=== PATIENT | male | born 1960 | race Two or more races ===

== ENCOUNTER 2017-09-01 12:57 | Emergency (ER) | payer BC ==
[~2017-09-01] VITALS: Ht 165.1 cm; Wt 83.9 kg
[~2017-09-01 12:57] MED LIST: ESOM20SU PO; LISI-334 PO
[2017-09-01 13:00] VITALS: BP 162/73
[2017-09-01] MEDS ORDERED: HYDR-971 PO (13:54)
[2017-09-01] MEDS ORDERED: AMOX1TAB61 PO (13:54)
[2017-09-01] MEDS ORDERED: MUPI22OI2 TP (13:55)
[2017-09-01] MEDS ORDERED: DIPHTH,PERTUSS(ACELL),TET TOX 0.5 ML DISP.SYRIN. VAX IM ONE (14:00)
[2017-09-01] MEDS ORDERED: NEOMY/BACITR/POLYMYXIN OINT PACKET. TP ONE (14:15)
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
== END 2017-09-01 14:23 | disposition home or self-care (01) ==
LOC: ER 12:57
DX: T24.222A Burn of second degree of left knee, initial encounter (principal); I10 Essential (primary) hypertension; E05.90 Thyrotoxicosis, unspecified without thyrotoxic crisis or storm; X08.8XXA Exposure to other specified smoke, fire and flames, initial encounter; Y93.89 Activity, other specified; Y99.8 Other external cause status; Y92.89 Other specified places as the place of occurrence of the external cause
CPT/HCPCS: 16020; 90471; 90715; 99283-25; 99284-25

== ENCOUNTER → 2021-01-03 | Outpatient (CLI) | payer BC ==
[~2021-01-03] MED LIST changes: +AMOX1TAB61 PO; +HYDR-3164 PO; -LISI-334 PO; +LISI20TA18 PO; +MUPI22OI2 TP
--- NOTE | 2021-01-03 17:12 | KCIC ---
XR CHEST 2V INDICATION: Reason: JENKINS, X2 MONTHS / Spl. Instructions: / History: . COMPARISON STUDY: None. FINDINGS: Lungs: Normal lung volume. No pulmonary mass or consolidation. Calcified pulmonary granuloma. The tra cheobronchial tree and hilar structures are normal. Pleura: No pleural effusion or pneumothorax. Heart and Mediastinum: The cardiomediastinal silhouette is normal. The great vessels of the thorax ar e normal. Bones and Soft Tissues: The bones and soft tissues are within normal limits. IMPRESSION: No acute cardiopulmonary process. Electronically signed by: Evaristo Jaquez MD (01/03/2021 5:10 PM) [id number]
== END ==
LOC: KCIC 12:32
PROVIDERS: ATTEND Family Medicine
DX: R06.00 Dyspnea, unspecified (principal)
CPT/HCPCS: 71046

== ENCOUNTER 2021-12-27 02:47 | Inpatient (IN) | payer BC ==
[~2021-12-27] VITALS: Ht 165.1 cm; Wt 82.3 kg
[~2021-12-27 02:47] MED LIST changes: +NITR0.4T24 SL
[2021-12-27 03:16] LABS: BASO % 0 % (0-3); EOS # 0.1 x10^3/uL (0.0-0.7); EOS % 1 % (0-3); HEMATOCRIT 40.8 % (39.0-53.0); HEMOGLOBIN 13.9 g/dL (13.0-17.5); LYMPH # 2.1 x10^3/uL (1.0-4.8); LYMPH % 18 % (24-48); MEAN CORPUSCULAR HEMOGLOBIN 30 pg (25-35); MEAN CORPUSCULAR HGB CONC 34 g/dL (31-37); MEAN CORPUSCULAR VOLUME 89 fL (79-100); MONO # 0.7 x10^3/uL (0.0-1.1); MONO % 6 % (0-9); NEUT # 8.8 x10^3/uL (1.8-7.7); NEUT % 75 % (31-73); PLATELET COUNT 226 x10^3/uL (140-400); RED BLOOD COUNT 4.58 x10^6/uL (4.30-5.70); RED CELL DISTRIBUTION WIDTH 13.5 % (11.5-14.5); WHITE BLOOD COUNT 11.8 x10^3/uL (4.0-11.0)
[2021-12-27 03:26] LABS: PROTHROMBIN TIME PATIENT 12.2 SEC (11.7-14.0)
[2021-12-27] MEDS ORDERED: ONDANSETRON PF 4 MG/2 ML VIAL. IVP ONE (03:30)
[2021-12-27] MEDS ORDERED: MORPHINE SULFATE 4 MG/ML INJ. IVP ONE (03:30)
[2021-12-27] MEDS ORDERED: IV NORMAL SALINE 1000ML BAG 1,000 ML IV ONE (03:30)
[2021-12-27 03:32] LABS: CALCIUM 9.7 mg/dL (8.5-10.1); GFR 76.2
[2021-12-27 03:38] LABS: TOTAL BILIRUBIN 0.4 mg/dL (0.2-1.0)
--- NOTE | 2021-12-27 03:46 | PHYS DOC ---
Past Medical History Past Medical History: Hypertension, Hypothyroid Additional Past Medical Histor: Acid Reflux Past Surgical History: Appendectomy Smoking Status: Current Every Day Smoker Alcohol Use: Occasionally Drug Use: None Adult General Chief Complaint Chief Complaint: GI PROBLEM HPI HPI The patient is a 61-year-old male with a history of hypertension and hypothyroid ism as well as prior appendectomy. He is a smoker. Mr. Lazcano presents for evaluation of upper abdominal pain with onset about 2 hours prior to arrival. Discomfort localizes to the right upper quadrant in the epigastrium and is severe, 9 out of 10 in severity per patient. Character of discomfort is sharp. Associated nausea with 1 episode of nonbloody vomiting thus far. No associated fevers, hematemesis, hematochezia or melena, upper respiratory congestion/rhinorrhea, cough, sore throat, shortness of breath or chest pain of any kind, flank pain, midline back pain, dysuria, hematuria, sunny yuria or oliguria, groin pain, changes in bowel habits, pain or swelling to arms or legs. Patient is alert and appropriately interactive and in mild distress due to abdominal discomfort. Vital signs are appropriate here aside from elevated blood pressure. Review of Systems Review of Systems A 12 point review of systems was completed and was negative except where noted in HPI above. Current Medications Current Medications Current Medications Medications (Trade) Dose Ordered Sig/Jose Start Time Stop Time Status Last Admin Dose Admin Dextrose/Lactated Ringer's 1,000 ml @ 125 mls/hr 1X ONCE 12/27/21 05:00 12/27/21 12:59 Hydromorphone HCl (Dilaudid) 1 mg 1X ONCE 12/27/21 04:00 12/27/21 04:01 DC 12/27/21 03:41 1 MG Morphine Sulfate (Morphine Sulfate) 2 mg PRN Q2HR PRN 12/27/21 04:30 12/28/21 04:29 Ondansetron HCl (Zofran) 4 mg PRN Q8HRS PRN 12/27/21 04:30 12/28/21 04:29 Piperacillin Sod/ Tazobactam Sod 4.5 gm/Dextrose 100 ml @ 200 mls/hr 1X ONCE 12/27/21 05:00 12/27/21 05:29 Sodium Chloride 1,000 ml @ 1,000 mls/hr 1X ONCE 12/27/21 03:30 12/27/21 04:29 DC 12/27/21 03:22 1,000 MLS/HR Allergies Allergies Allergies Coded Allergies Type Severity Reaction Last Updated Verified No Known Drug Allergies 12/27/21 No Physical Exam Physical Exam 7-year-old male appearing nontoxic and in no acute distress. Head is normocephalic and atraumatic. Neck is supple and nontender. Oropharynx is moist. Lungs are clear to auscultation at all stations. There is a normal S1 and S2 without rubs or gallops and capillary refill is appropriate, less than 2 seconds globally. Abdomen is soft, nondistended and with mild focal epigastric and right upper quadrant tenderness to palpation without rebound or guarding. No lower quadrant tenderness to palpation. Skin is warm and dry without cyanosis, clubbing or edema. Psychiatrically, the patient demonstrates appropriate mood and affect and is alert. Evaluation of the extremities reveals BUEs and BLEs neurovascularly intact distally with strength 5 out of 5, sensation intact light touch in all nerve distributions, radial, DP and PT pulses 2+ and equal bilaterally, capillary refill less than 2 seconds, hands and feet warm and well-perfused. No dependent peripheral edema distally. No calf tenderness or swelling bilaterally. Homans test is negative bilaterally. Current Patient Data Vital Signs Vital Signs Date Time Temp Pulse Resp B/P (MAP) Pulse Ox O2 Delivery O2 Flow Rate FiO2 12/27/21 03:55 20 100 Room Air 12/27/21 02:54 97.7 69 185/119 (141) 97.7 Lab Values Laboratory Tests Test 12/27/21 03:06 White Blood Count 11.8 x10^3/uL (4.0-11.0) H Red Blood Count 4.58 x10^6/uL (4.30-5.70) Hemoglobin 13.9 g/dL (13.0-17.5) Hematocrit 40.8 % (39.0-53.0) Mean Corpuscular Volume 89 fL (79-100) Mean Corpuscular Hemoglobin 30 pg (25-35) Mean Corpuscular Hemoglobin Concent 34 g/dL (31-37) Red Cell Distribution Width 13.5 % (11.5-14.5) Platelet Count 226 x10^3/uL (140-400) Neutrophils (%) (Auto) 75 % (31-73) H Lymphocytes (%) (Auto) 18 % (24-48) L Monocytes (%) (Auto) 6 % (0-9) Eosinophils (%) (Auto) 1 % (0-3) Basophils (%) (Auto) 0 % (0-3) Neutrophils # (Auto) 8.8 x10^3/uL (1.8-7.7) H Lymphocytes # (Auto) 2.1 x10^3/uL (1.0-4.8) Monocytes # (Auto) 0.7 x10^3/uL (0.0-1.1) Eosinophils # (Auto) 0.1 x10^3/uL (0.0-0.7) Basophils # (Auto) 0.0 x10^3/uL (0.0-0.2) Prothrombin Time 12.2 SEC (11.7-14.0) Prothrombin Time INR 0.9 (0.8-1.1) Activated Partial Thromboplast Time 28 SEC (24-38) Sodium Level 139 mmol/L (136-145) Potassium Level 4.0 mmol/L (3.5-5.1) Chloride Level 101 mmol/L (98-107) Carbon Dioxide Level 24 mmol/L (21-32) Anion Gap 14 (6-14) Blood Urea Nitrogen 19 mg/dL (8-26) Creatinine 1.0 mg/dL (0.7-1.3) Estimated GFR (Cockcroft-Gault) 76.2 BUN/Creatinine Ratio 19 (6-20) Glucose Level 181 mg/dL (70-99) H Calcium Level 9.7 mg/dL (8.5-10.1) Total Bilirubin 0.4 mg/dL (0.2-1.0) Aspartate Amino Transferase (AST) 22 U/L (15-37) Alanine Aminotransferase (ALT) 26 U/L (16-63) Alkaline Phosphatase 90 U/L (46-116) Troponin I High Sensitivity 7 ng/L (4-75) Total Protein 8.0 g/dL (6.4-8.2) Albumin 4.0 g/dL (3.4-5.0) Albumin/Globulin Ratio 1.0 (1.0-1.7) Lipase 54 U/L (73-393) L Laboratory Tests 12/27/21 03:06 Laboratory Tests 12/27/21 03:06 EKG EKG Sinus rhythm, no acute ST elevation or depression, EP interpretation. Nonischemic tracing. Radiology/Procedures Radiology/Procedures EXAMINATION: RIGHT UPPER QUADRANT ULTRASOUND CLINICAL HISTORY: Right upper quadrant abdominal pain. TECHNIQUE: Sonography of the right upper quadrant was performed. COMPARISON: None FINDINGS: Pancreas: Not visualized secondary to prominent overlying bowel gas. Liver: - Echotexture: Heterogeneous - Echogenicity: Increased, suggestive of steatosis - Surface contour: Smooth - Lesions: None. Biliary: No intrahepatic biliary duct dilation. - CBD: 6 mm. - Gallbladder: Moderately distended - Contents: Cholelithiasis - Wall: Thickened - Other: Minimal pericholecystic fluid. Positive sonographic Armos's sign. Right Kidney: Measures 11.1 cm in length. No hydronephrosis or focal lesion. Ascites: None. Aorta/IVC: Partially visualized aorta and IVC unremarkable. IMPRESSION: Cholelithiasis and findings consistent with acute cholecystitis. Findings suggestive of hepatic steatosis. Electronically signed by: Seymour Bashir DO (12/27/2021 4:13 AM) [facility] DICTATED and SIGNED BY: SEYMOUR BASHIR DO DATE: 12/27/21409 Course & Med Decision Making Course & Med Decision Making 61-year-old gentleman presenting for right upper quadrant and epigastric abdominal pain associated with vomiting with acute onset a couple of hours prior to arrival overnight. Patient seems focally quite tender over the right upper q uadrant. Will place IV and give IV fluids and medication for nausea and discomfort as noted and will check labs, EKG and a right upper quadrant ultrasound to start. We will then reevaluate. 0420: Labs and imaging as above. Labs remarkable for a mild leukocytosis and otherwise reassuring. Right upper quadrant ultrasound with evidence of cholelithiasis with acute cholecystitis. Patient is resting very comfortably after medications and fluids as per flowsheet. We will give a dose of Zosyn and admit for attention from general surgery and further care. Graciously accepted for admission by Dr. Hussein. Consult placed to Dr. Jacobson of general surgery. Dragon Disclaimer Dragon Disclaimer This electronic medical record was generated, in whole or in part, using a voice recognition dictation system. Departure Departure Impression: Primary Impression: Acute cholecystitis Additional Impressions: Right upper quadrant abdominal pain Acute vomiting Disposition: ADMITTED INPATIENT Condition: STABLE Referrals: SAHIL TAYLOR MD (PCP) Problem Qualifiers NEMO ENGLAND MD Dec 27, 2021 03:46
[2021-12-27] MEDS ORDERED: HYDROmorphone 2 MG/ML INJ. IVP ONE (04:00)
--- NOTE | 2021-12-27 04:16 | RAD ---
EXAMINATION: RIGHT UPPER QUADRANT ULTRASOUND CLINICAL HISTORY: Right upper quadrant abdominal pain. TECHNIQUE: Sonography of the right upper quadrant was performed. COMPARISON: None FINDINGS: Pancreas: Not visualized secondary to prominent overlying bowel gas. Liver: - Echotexture: Heterogeneous - Echogenicity: Increased, suggestive of steatosis - Surface contour: Smooth - Lesions: None. Biliary: No intrahepatic biliary duct dilation. - CBD: 6 mm. - Gallbladder: Moderately distended - Contents: Cholelithiasis - Wall: Thickened - Other: Minimal pericholecystic fluid. Positive sonographic Ramos's sign. Right Kidney: Measures 11.1 cm in length. No hydronephrosis or focal lesion. Ascites: None. Aorta/IVC: Partially visualized aorta and IVC unremarkable. IMPRESSION: Cholelithiasis and findings consistent with acute cholecystitis. Findings suggestive of hepatic steatosis. Electronically signed by: Seymour eMnjivar DO (12/27/2021 4:13 AM) [facility]
[2021-12-27] MEDS ORDERED: ONDANSETRON PF 4 MG/2 ML VIAL. IVP PRN (04:30)
[2021-12-27] MEDS: MORPHINE SULFATE 2 MG/ML INJ. IVP PRN ×7 (04:56→22:26)
[2021-12-27] MEDS ORDERED: PIPERACILLIN/TAZOBACTAM 4.5 GM in IV DEXTROSE 5% 100ML 100 ML IV ONE (05:00)
[2021-12-27] MEDS ORDERED: IV DEXTROSE 5%-LACT RINGERS 1,000 ML IV ONE ×2 (05:00)
--- NOTE | 2021-12-27 05:50 | EKG ---
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
[2021-12-27 07:30] VITALS: BP 148/78
--- NOTE | 2021-12-27 10:23 | NUR ---
SS following for discharge planning. SS reviewed pt chart and discussed with pt RN. Pt is from home with spouse and is currently on room air. NPO. Surgery consulted. Pt ad sivakumar for ambulation. Discharge plan is currently to home when medically ready for discharge. SS will continue to follow for discharge planning.
[2021-12-27 11:00] VITALS: BP 165/103
[2021-12-27] MEDS ORDERED: PIP/TAZO PER PHARMACY MC PRN (11:30)
--- NOTE | 2021-12-27 11:30 | PDOC2 ---
CONSULT Date of Consult Date of Consult DATE: 12/27/21 TIME: 11:27 Reason for Consult Reason for Consult: cholecystitis Referring Physician Referring Physician: ER Identification/Chief Complaint Chief Complaint abdominal pain Source Source: Chart review, Patient History of Present Illness Reason for Visit: Admitted with acute onset RUQ pain that radiates to back. Associated nausea. No similar pain in past . No constipation or diarrhea Past Medical History Cardiovascular: CAD, HTN GI: GERD Endocrine: Hypothyroidism Past Surgical History Past Surgical History: Appendectomy Family History Family History: Other (noncontributory to current illness ) Social History <1 pack per day ALCOHOL: occassional Drugs: None Current Problem List Problem List Problems Medical Problems: (1) Acute cholecystitis Status: Acute (2) Acute vomiting Status: Acute (3) Right upper quadrant abdominal pain Status: Acute Current Medications Current Medications Current Medications Morphine Sulfate (Morphine Sulfate) 4 mg 1X ONCE IVP Last administered on 12/27/21at 03:18; Start 12/27/21 at 03:30; Stop 12/27/21 at 03:31; Status DC Ondansetron HCl (Zofran) 4 mg 1X ONCE IVP Last administered on 12/27/21at 03:18; Start 12/27/21 at 03:30; Stop 12/27/21 at 03:31; Status DC Sodium Chloride 1,000 ml @ 1,000 mls/hr 1X ONCE IV Last administered on 12/27/21at 03:22; Start 12/27/21 at 03:30; Stop 12/27/21 at 04:29; Status DC Hydromorphone HCl (Dilaudid) 1 mg 1X ONCE IVP Last administered on 12/27/21at 03:41; Start 12/27/21 at 04:00; Stop 12/27/21 at 04:01; Status DC Piperacillin Sod/ Tazobactam Sod 4.5 gm/Dextrose 100 ml @ 200 mls/hr 1X ONCE IV Last administered on 12/27/21at 05:07; Start 12/27/21 at 05:00; Stop 12/27/21 at 05:29; Status DC Dextrose/Lactated Ringer's 1,000 ml @ 125 mls/hr 1X ONCE IV Last administered on 12/27/21at 04:57; Start 12/27/21 at 05:00; Stop 12/27/21 at 12:59 Ondansetron HCl (Zofran) 4 mg PRN Q8HRS PRN IVP NAUSEA/VOMITING; Start 12/27/21 at 04:30; Stop 12/28/21 at 04:29 Morphine Sulfate (Morphine Sulfate) 2 mg PRN Q2HR PRN IVP SEVERE PAIN 7-10 Last administered on 12/27/21at 08:18; Start 12/27/21 at 04:30; Stop 12/28/21 at 04:29 Dextrose/Lactated Ringer's 1,000 ml @ 125 mls/hr 1X ONCE IV ; Start 12/27/21 at 05:00; Stop 12/27/21 at 12:59; Status Cancel Dextrose/Lactated Ringer's 1,000 ml @ 125 mls/hr Q8H IV ; Start 12/27/21 at 13:00 Piperacillin Sod/ Tazobactam Sod 4.5 gm/Sodium Chloride 100 ml @ 200 mls/hr Q6HRS IV ; Start 12/27/21 at 12:00; Stop 12/27/21 at 11:22; Status DC Piperacillin Sod/ Tazobactam Sod (Zosyn Per Pharmacy) 1 each PRN DAILY PRN MC SEE COMMENTS; Start 12/27/21 at 11:30 Piperacillin Sod/ Tazobactam Sod 3.375 gm/Sodium Chloride 50 ml @ 100 mls/hr Q6HRS IV ; Start 12/27/21 at 12:00 Active Scripts Active Nitrostat (Nitroglycerin) 0.4 Mg Tab.subl 0.4 Mg SL PRN Q5MIN PRN 30 Days Reported Nexium Packet (Esomeprazole Magnesium) 20 Mg Suspdr.pkt 20 Mg PO Lisinopril 20 Mg Tablet 40 Mg PO DAILY Allergies Allergies: Coded Allergies: No Known Drug Allergies (Unverified , 12/27/21) ROS General: No: Chills, Other (fevers ) PSYCHOLOGICAL ROS: No: Anxiety, Depression Eyes: No Blurry vision, No Double vision HEENT: No: Heacaches, Sore Throat Hematological and Lymphatic: No: Bleeding Problems, Blood Clots Respiratory: No: Cough, Shortness of breath Cardiovascular: No Chest Pain, No Palpitations Gastrointestinal: Yes Other (see hpi) Genitourinary: No Dysuria, No Hematuria Musculoskeletal: No Joint Pain, No Muscle Pain Neurological: No Impaired Coord/balance, No Numbness/Tingling Skin: No Pruritus, No Rash Physical Exam General: Alert, Oriented X3, Cooperative HEENT: Atraumatic Lungs: Clear to auscultation Heart: Regular rate, Normal S1, Normal S2, No murmurs Abdomen: Soft, Other (RUQ TTP ) Extremities: No clubbing, No cyanosis Skin: No rashes, No breakdown Neuro: Normal gait, Normal speech Psych/Mental Status: Mental status NL, Mood NL MUSCULOSKELETAL: No deformity, No swelling Vitals VITALS Vital Signs Date Time Temp Pulse Resp B/P (MAP) Pulse Ox O2 Delivery O2 Flow Rate FiO2 12/27/21 11:00 97.8 53 18 165/103 (123) 98 Room Air 97.8 Labs Labs Laboratory Tests Test 12/27/21 03:06 12/27/21 05:05 White Blood Count 11.8 x10^3/uL (4.0-11.0) Red Blood Count 4.58 x10^6/uL (4.30-5.70) Hemoglobin 13.9 g/dL (13.0-17.5) Hematocrit 40.8 % (39.0-53.0) Mean Corpuscular Volume 89 fL (79-100) Mean Corpuscular Hemoglobin 30 pg (25-35) Mean Corpuscular Hemoglobin Concent 34 g/dL (31-37) Red Cell Distribution Width 13.5 % (11.5-14.5) Platelet Count 226 x10^3/uL (140-400) Neutrophils (%) (Auto) 75 % (31-73) Lymphocytes (%) (Auto) 18 % (24-48) Monocytes (%) (Auto) 6 % (0-9) Eosinophils (%) (Auto) 1 % (0-3) Basophils (%) (Auto) 0 % (0-3) Neutrophils # (Auto) 8.8 x10^3/uL (1.8-7.7) Lymphocytes # (Auto) 2.1 x10^3/uL (1.0-4.8) Monocytes # (Auto) 0.7 x10^3/uL (0.0-1.1) Eosinophils # (Auto) 0.1 x10^3/uL (0.0-0.7) Basophils # (Auto) 0.0 x10^3/uL (0.0-0.2) Prothrombin Time 12.2 SEC (11.7-14.0) Prothromb Time International Ratio 0.9 (0.8-1.1) Activated Partial Thromboplast Time 28 SEC (24-38) Sodium Level 139 mmol/L (136-145) Potassium Level 4.0 mmol/L (3.5-5.1) Chloride Level 101 mmol/L (98-107) Carbon Dioxide Level 24 mmol/L (21-32) Anion Gap 14 (6-14) Blood Urea Nitrogen 19 mg/dL (8-26) Creatinine 1.0 mg/dL (0.7-1.3) Estimated GFR (Cockcroft-Gault) 76.2 BUN/Creatinine Ratio 19 (6-20) Glucose Level 181 mg/dL (70-99) Calcium Level 9.7 mg/dL (8.5-10.1) Total Bilirubin 0.4 mg/dL (0.2-1.0) Aspartate Amino Transf (AST/SGOT) 22 U/L (15-37) Alanine Aminotransferase (ALT/SGPT) 26 U/L (16-63) Alkaline Phosphatase 90 U/L (46-116) Troponin I High Sensitivity 7 ng/L (4-75) Total Protein 8.0 g/dL (6.4-8.2) Albumin 4.0 g/dL (3.4-5.0) Albumin/Globulin Ratio 1.0 (1.0-1.7) Lipase 54 U/L (73-393) Lactic Acid Level 0.8 mmol/L (0.4-2.0) Laboratory Tests Test 12/27/21 03:06 12/27/21 05:05 White Blood Count 11.8 x10^3/uL (4.0-11.0) Red Blood Count 4.58 x10^6/uL (4.30-5.70) Hemoglobin 13.9 g/dL (13.0-17.5) Hematocrit 40.8 % (39.0-53.0) Mean Corpuscular Volume 89 fL (79-100) Mean Corpuscular Hemoglobin 30 pg (25-35) Mean Corpuscular Hemoglobin Concent 34 g/dL (31-37) Red Cell Distribution Width 13.5 % (11.5-14.5) Platelet Count 226 x10^3/uL (140-400) Neutrophils (%) (Auto) 75 % (31-73) Lymphocytes (%) (Auto) 18 % (24-48) Monocytes (%) (Auto) 6 % (0-9) Eosinophils (%) (Auto) 1 % (0-3) Basophils (%) (Auto) 0 % (0-3) Neutrophils # (Auto) 8.8 x10^3/uL (1.8-7.7) Lymphocytes # (Auto) 2.1 x10^3/uL (1.0-4.8) Monocytes # (Auto) 0.7 x10^3/uL (0.0-1.1) Eosinophils # (Auto) 0.1 x10^3/uL (0.0-0.7) Basophils # (Auto) 0.0 x10^3/uL (0.0-0.2) Prothrombin Time 12.2 SEC (11.7-14.0) Prothromb Time International Ratio 0.9 (0.8-1.1) Activated Partial Thromboplast Time 28 SEC (24-38) Sodium Level 139 mmol/L (136-145) Potassium Level 4.0 mmol/L (3.5-5.1) Chloride Level 101 mmol/L (98-107) Carbon Dioxide Level 24 mmol/L (21-32) Anion Gap 14 (6-14) Blood Urea Nitrogen 19 mg/dL (8-26) Creatinine 1.0 mg/dL (0.7-1.3) Estimated GFR (Cockcroft-Gault) 76.2 BUN/Creatinine Ratio 19 (6-20) Glucose Level 181 mg/dL (70-99) Calcium Level 9.7 mg/dL (8.5-10.1) Total Bilirubin 0.4 mg/dL (0.2-1.0) Aspartate Amino Transf (AST/SGOT) 22 U/L (15-37) Alanine Aminotransferase (ALT/SGPT) 26 U/L (16-63) Alkaline Phosphatase 90 U/L (46-116) Troponin I High Sensitivity 7 ng/L (4-75) Total Protein 8.0 g/dL (6.4-8.2) Albumin 4.0 g/dL (3.4-5.0) Albumin/Globulin Ratio 1.0 (1.0-1.7) Lipase 54 U/L (73-393) Lactic Acid Level 0.8 mmol/L (0.4-2.0) Assessment/Plan Assessment/Plan cholecystitis plan lap steve in AM 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
[2021-12-27] MEDS: PIPERACILLIN/TAZOBACTAM 3.375 GM in IV NORMAL SALINE 50ML 50 ML IV SCH ×3 (11:42→23:57)
[2021-12-27] MEDS ORDERED: PIPERACILLIN/TAZOBACTAM 4.5 GM in IV NORMAL SALINE 100ML 100 ML IV SCH (12:00)
--- NOTE | 2021-12-27 12:10 | PDOC1 ---
History and Physical Date of Admission Date of Admission DATE: 12/27/21 TIME: 12:09 Identification/Chief Complaint Chief Complaint Abdominal pain Source Source: Patient History of Present Illness History of Present Illness Patient is 61-year-old male with past medical history CAD, HTN, who presents with complaint of right upper quadrant abdominal pain since yesterday evening. Reports sharp pain, with associated nausea and vomiting. Labs on admission were largely unremarkable; WBC 11.8, CBG 181. Ultrasound showed cholelithiasis and findings consistent with acute cholecystitis. General surgery has been contacted in the ED. Will admit patient for further medical management. Of note, patient does admit to a history of angina and previously having a PCI performed at this facility. He states that this procedure showed patent arteries with no need for stent placement, but he was prescribed nitroglycerin for those symptoms. Past Medical History Cardiovascular: CAD, HTN GI: GERD Endocrine: Hypothyroidism Past Surgical History Past Surgical History: Appendectomy Family History Family History: Other (noncontributory to current illness ) Social History Smoke: <1 pack per day ALCOHOL: occassional Drugs: None Current Problem List Problem List Problems Medical Problems: (1) Acute cholecystitis Status: Acute (2) Acute vomiting Status: Acute (3) Right upper quadrant abdominal pain Status: Acute Current Medications Current Medications Current Medications Morphine Sulfate (Morphine Sulfate) 4 mg 1X ONCE IVP Last administered on 12/27/21at 03:18; Start 12/27/21 at 03:30; Stop 12/27/21 at 03:31; Status DC Ondansetron HCl (Zofran) 4 mg 1X ONCE IVP Last administered on 12/27/21at 03:18; Start 12/27/21 at 03:30; Stop 12/27/21 at 03:31; Status DC Sodium Chloride 1,000 ml @ 1,000 mls/hr 1X ONCE IV Last administered on 12/27/21at 03:22; Start 12/27/21 at 03:30; Stop 12/27/21 at 04:29; Status DC Hydromorphone HCl (Dilaudid) 1 mg 1X ONCE IVP Last administered on 12/27/21at 03:41; Start 12/27/21 at 04:00; Stop 12/27/21 at 04:01; Status DC Piperacillin Sod/ Tazobactam Sod 4.5 gm/Dextrose 100 ml @ 200 mls/hr 1X ONCE IV Last administered on 12/27/21at 05:07; Start 12/27/21 at 05:00; Stop 12/27/21 at 05:29; Status DC Dextrose/Lactated Ringer's 1,000 ml @ 125 mls/hr 1X ONCE IV Last administered on 12/27/21at 04:57; Start 12/27/21 at 05:00; Stop 12/27/21 at 12:59 Ondansetron HCl (Zofran) 4 mg PRN Q8HRS PRN IVP NAUSEA/VOMITING; Start 12/27/21 at 04:30; Stop 12/28/21 at 04:29 Morphine Sulfate (Morphine Sulfate) 2 mg PRN Q2HR PRN IVP SEVERE PAIN 7-10 Last administered on 12/27/21at 11:43; Start 12/27/21 at 04:30; Stop 12/28/21 at 04:29 Dextrose/Lactated Ringer's 1,000 ml @ 125 mls/hr 1X ONCE IV ; Start 12/27/21 at 05:00; Stop 12/27/21 at 12:59; Status Cancel Dextrose/Lactated Ringer's 1,000 ml @ 125 mls/hr Q8H IV ; Start 12/27/21 at 13:00 Piperacillin Sod/ Tazobactam Sod 4.5 gm/Sodium Chloride 100 ml @ 200 mls/hr Q6HRS IV ; Start 12/27/21 at 12:00; Stop 12/27/21 at 11:22; Status DC Piperacillin Sod/ Tazobactam Sod (Zosyn Per Pharmacy) 1 each PRN DAILY PRN MC SEE COMMENTS; Start 12/27/21 at 11:30 Piperacillin Sod/ Tazobactam Sod 3.375 gm/Sodium Chloride 50 ml @ 100 mls/hr Q6 HRS IV Last administered on 12/27/21at 11:42; Start 12/27/21 at 12:00 Active Scripts Active Nitrostat (Nitroglycerin) 0.4 Mg Tab.subl 0.4 Mg SL PRN Q5MIN PRN 30 Days Reported Nexium Packet (Esomeprazole Magnesium) 20 Mg Suspdr.pkt 20 Mg PO Lisinopril 20 Mg Tablet 40 Mg PO DAILY Allergies Allergies: Coded Allergies: No Known Drug Allergies (Unverified , 12/27/21) ROS Review of System GENERAL: No history of weight change, weakness or fevers. SKIN: No bruising, hair changes or rashes. EYES: No blurred, double or loss of vision. NOSE AND THROAT: No history of nosebleeds, hoarseness or sore throat. HEART: Denies chest pain, denies palpitations. LUNGS: Denies cough, hemoptysis, wheezing or shortness of breath. GASTROINTESTINAL: Abdominal pain. Nausea and vomiting. GENITOURINARY: Denies dysuria, frequency, urgency, hematuria. NEUROLOGIC: Denies history of numbness, tingling, tremor or weakness. PSYCHIATRIC: Denies anxiety, denies depression. ENDOCRINE: No history of heat or cold intolerance, polyuria or polydipsia. EXTREMITIES: Denies muscle weakness, joint pain, pain on walking or stiffness. Physical Exam Physical Exam General: Alert, Oriented X3, Cooperative, No acute distress HEENT: PERRLA, EOMI Lungs: Clear to auscultation, Normal air movement Heart: RRR, no murmurs Cardiovascular: S1, S2 Abdomen: Right upper quadrant tenderness. Normal bowel sounds, Soft. Extremities: No clubbing, No cyanosis Skin: No rashes, No significant lesion Neuro: Normal speech, Normal tone, Sensation intact Psych/Mental Status: Mental status NL, Mood NL Vitals Vitals Vital Signs Date Time Temp Pulse Resp B/P (MAP) Pulse Ox O2 Delivery O2 Flow Rate FiO2 12/27/21 11:43 Room Air 12/27/21 11:00 97.8 53 18 165/103 (123) 98 97.8 Labs Labs Laboratory Tests Test 12/27/21 03:06 12/27/21 05:05 White Blood Count 11.8 x10^3/uL (4.0-11.0) Red Blood Count 4.58 x10^6/uL (4.30-5.70) Hemoglobin 13.9 g/dL (13.0-17.5) Hematocrit 40.8 % (39.0-53.0) Mean Corpuscular Volume 89 fL (79-100) Mean Corpuscular Hemoglobin 30 pg (25-35) Mean Corpuscular Hemoglobin Concent 34 g/dL (31-37) Red Cell Distribution Width 13.5 % (11.5-14.5) Platelet Count 226 x10^3/uL (140-400) Neutrophils (%) (Auto) 75 % (31-73) Lymphocytes (%) (Auto) 18 % (24-48) Monocytes (%) (Auto) 6 % (0-9) Eosinophils (%) (Auto) 1 % (0-3) Basophils (%) (Auto) 0 % (0-3) Neutrophils # (Auto) 8.8 x10^3/uL (1.8-7.7) Lymphocytes # (Auto) 2.1 x10^3/uL (1.0-4.8) Monocytes # (Auto) 0.7 x10^3/uL (0.0-1.1) Eosinophils # (Auto) 0.1 x10^3/uL (0.0-0.7) Basophils # (Auto) 0.0 x10^3/uL (0.0-0.2) Prothrombin Time 12.2 SEC (11.7-14.0) Prothromb Time International Ratio 0.9 (0.8-1.1) Activated Partial Thromboplast Time 28 SEC (24-38) Sodium Level 139 mmol/L (136-145) Potassium Level 4.0 mmol/L (3.5-5.1) Chloride Level 101 mmol/L (98-107) Carbon Dioxide Level 24 mmol/L (21-32) Anion Gap 14 (6-14) Blood Urea Nitrogen 19 mg/dL (8-26) Creatinine 1.0 mg/dL (0.7-1.3) Estimated GFR (Cockcroft-Gault) 76.2 BUN/Creatinine Ratio 19 (6-20) Glucose Level 181 mg/dL (70-99) Calcium Level 9.7 mg/dL (8.5-10.1) Total Bilirubin 0.4 mg/dL (0.2-1.0) Aspartate Amino Transf (AST/SGOT) 22 U/L (15-37) Alanine Aminotransferase (ALT/SGPT) 26 U/L (16-63) Alkaline Phosphatase 90 U/L (46-116) Troponin I High Sensitivity 7 ng/L (4-75) Total Protein 8.0 g/dL (6.4-8.2) Albumin 4.0 g/dL (3.4-5.0) Albumin/Globulin Ratio 1.0 (1.0-1.7) Lipase 54 U/L (73-393) Lactic Acid Level 0.8 mmol/L (0.4-2.0) Laboratory Tests Test 12/27/21 03:06 12/27/21 05:05 White Blood Count 11.8 x10^3/uL (4.0-11.0) Red Blood Count 4.58 x10^6/uL (4.30-5.70) Hemoglobin 13.9 g/dL (13.0-17.5) Hematocrit 40.8 % (39.0-53.0) Mean Corpuscular Volume 89 fL (79-100) Mean Corpuscular Hemoglobin 30 pg (25-35) Mean Corpuscular Hemoglobin Concent 34 g/dL (31-37) Red Cell Distribution Width 13.5 % (11.5-14.5) Platelet Count 226 x10^3/uL (140-400) Neutrophils (%) (Auto) 75 % (31-73) Lymphocytes (%) (Auto) 18 % (24-48) Monocytes (%) (Auto) 6 % (0-9) Eosinophils (%) (Auto) 1 % (0-3) Basophils (%) (Auto) 0 % (0-3) Neutrophils # (Auto) 8.8 x10^3/uL (1.8-7.7) Lymphocytes # (Auto) 2.1 x10^3/uL (1.0-4.8) Monocytes # (Auto) 0.7 x10^3/uL (0.0-1.1) Eosinophils # (Auto) 0.1 x10^3/uL (0.0-0.7) Basophils # (Auto) 0.0 x10^3/uL (0.0-0.2) Prothrombin Time 12.2 SEC (11.7-14.0) Prothromb Time International Ratio 0.9 (0.8-1.1) Activated Partial Thromboplast Time 28 SEC (24-38) Sodium Level 139 mmol/L (136-145) Potassium Level 4.0 mmol/L (3.5-5.1) Chloride Level 101 mmol/L (98-107) Carbon Dioxide Level 24 mmol/L (21-32) Anion Gap 14 (6-14) Blood Urea Nitrogen 19 mg/dL (8-26) Creatinine 1.0 mg/dL (0.7-1.3) Estimated GFR (Cockcroft-Gault) 76.2 BUN/Creatinine Ratio 19 (6-20) Glucose Level 181 mg/dL (70-99) Calcium Level 9.7 mg/dL (8.5-10.1) Total Bilirubin 0.4 mg/dL (0.2-1.0) Aspartate Amino Transf (AST/SGOT) 22 U/L (15-37) Alanine Aminotransferase (ALT/SGPT) 26 U/L (16-63) Alkaline Phosphatase 90 U/L (46-116) Troponin I High Sensitivity 7 ng/L (4-75) Total Protein 8.0 g/dL (6.4-8.2) Albumin 4.0 g/dL (3.4-5.0) Albumin/Globulin Ratio 1.0 (1.0-1.7) Lipase 54 U/L (73-393) Lactic Acid Level 0.8 mmol/L (0.4-2.0) Images Images PATIENT: SHARON BARRETT ACCOUNT: [id number] : 1960 LOCATION: ER AGE: 61 SEX: M EXAM STATUS: REG ER ORD. PHYSICIAN: NEMO ENGLADN MD REASON: RUQ abd pain; evaluate GB PROCEDURE: ABDOMEN LTD EXAMINATION: RIGHT UPPER QUADRANT ULTRASOUND CLINICAL HISTORY: Right upper quadrant abdominal pain. TECHNIQUE: Sonography of the right upper quadrant was performed. COMPARISON: None FINDINGS: Pancreas: Not visualized secondary to prominent overlying bowel gas. Liver: - Echotexture: Heterogeneous - Echogenicity: Increased, suggestive of steatosis - Surface contour: Smooth - Lesions: None. Biliary: No intrahepatic biliary duct dilation. - CBD: 6 mm. - Gallbladder: Moderately distended - Contents: Cholelithiasis - Wall: Thickened - Other: Minimal pericholecystic fluid. Positive sonographic Ramos's sign. Right Kidney: Measures 11.1 cm in length. No hydronephrosis or focal lesion. Ascites: None. Aorta/IVC: Partially visualized aorta and IVC unremarkable. IMPRESSION: Cholelithiasis and findings consistent with acute cholecystitis. Findings suggestive of hepatic steatosis. VTE Prophylaxis Ordered VTE Prophylaxis Devices: No VTE Pharmacological Prophylaxi: Yes Assessment/Plan Assessment/Plan Acute cholecystitis HTN Plan: Consulted general surgery. Patient is scheduled for surgical intervention tomorrow. Continue IV Zosyn Will consult cardiology for surgical clearance, for concerns of dubious medical history. Recommended clear liquid diet patient, and n.p.o. after midnight. Resume home medications FEN - Cardiac diet PPX - Heparin FULL CODE Dispo - inpatient for above Justifications for Admission Other Justification ANAIS HAMM MD Dec 27, 2021 12:10
[2021-12-27] MEDS ORDERED: NITROGLYCERIN SUBLINGUAL 0.4 MG BOTTLE OF 25. SL PRN (12:45)
[2021-12-27] MEDS ORDERED: IV DEXTROSE 5%-LACT RINGERS 1,000 ML IV SCH (13:00)
[2021-12-27] MEDS ORDERED: hydrALAZINE 20 MG/ML VIAL. IVP PRN (13:00)
[2021-12-27] MEDS ORDERED: ZOLPIDEM 5 MG TABLET. PO PRN (13:00)
[2021-12-27] MEDS ORDERED: MAGNESIUM HYDROXIDE 2,400 MG/30 ML ORAL.SUSP. PO PRN (13:00)
[2021-12-27] MEDS ORDERED: ACETAMINOPHEN 325 MG TABLET. PO PRN (13:00)
[2021-12-27] MEDS: IV DEXTROSE 5% - 0.9 % NACL 1,000 ML IV SCH ×2 (13:01→22:21)
[2021-12-27] MEDS: LISINOPRIL 20 MG TABLET PO SCH (13:11)
--- NOTE | 2021-12-27 13:17 | PDOC2 ---
CORNELIO MITCHELL [facility] UNDERWRITER 12/27/21 1317: CARDIAC CONSULT DATE OF CONSULT Date of Consult DATE: 12/27/21 TIME: 13:12 REASON FOR CONSULT Reason for Consult: Preop clearance REFERRING PHYSICIAN Referring Physician: Qian SOURCE Source: Chart review, Patient HISTORY OF PRESENT ILLNESS HISTORY OF PRESENT ILLNESS This is a pleasant 61 yomale admitted for complains of abdominal pain. This is isolated to [facility] and started last night. He had meatballs and armenian food last night. He almost passed out due to the pain. No vomiting or diarrhea. Denies any chest pain or SOA. No palpitations. No fever or chills. He does not take ASA but takes a cholesterol pill and BP med. Further imaging shows gallstones and gallbladder inflammation. No pain or SOA with exertion. PAST MEDICAL HISTORY Cardiovascular: CAD, HTN GI: GERD Endocrine: Hypothyroidism PAST SURGICAL HISTORY Past Surgical History: Appendectomy, Other (C) FAMILY HISTORY Family History noncontributory to CV SOCIAL HISTORY Smoke: <1 pack per day ALCOHOL: none Drugs: None Lives: with Family CURRENT MEDICATIONS CURRENT MEDICATIONS Current Medications Medications (Trade) Dose Ordered Sig/Jose Route PRN Reason Start Time Stop Time Status Last Admin Dose Admin Morphine Sulfate (Morphine Sulfate) 4 mg 1X ONCE IVP 12/27/21 03:30 12/27/21 03:31 DC 12/27/21 03:18 Ondansetron HCl (Zofran) 4 mg 1X ONCE IVP 12/27/21 03:30 12/27/21 03:31 DC 12/27/21 03:18 Sodium Chloride 1,000 ml @ 1,000 mls/hr 1X ONCE IV 12/27/21 03:30 12/27/21 04:29 DC 12/27/21 03:22 Hydromorphone HCl (Dilaudid) 1 mg 1X ONCE IVP 12/27/21 04:00 12/27/21 04:01 DC 12/27/21 03:41 Piperacillin Sod/ Tazobactam Sod 4.5 gm/Dextrose 100 ml @ 200 mls/hr 1X ONCE IV 12/27/21 05:00 12/27/21 05:29 DC 12/27/21 05:07 Dextrose/Lactated Ringer's 1,000 ml @ 125 mls/hr 1X ONCE IV 12/27/21 05:00 12/27/21 12:59 DC 12/27/21 04:57 Morphine Sulfate (Morphine Sulfate) 2 mg PRN Q2HR PRN IVP SEVERE PAIN 7-10 12/27/21 04:30 12/28/21 04:29 12/27/21 11:43 Piperacillin Sod/ Tazobactam Sod 3.375 gm/Sodium Chloride 50 ml @ 100 mls/hr Q6HRS IV 12/27/21 12:00 12/27/21 11:42 Dextrose/Sodium Chloride 1,000 ml @ 125 mls/hr Q8H IV 12/27/21 12:45 12/27/21 13:01 Lisinopril (Prinivil) 40 mg DAILY PO 12/27/21 13:00 12/27/21 13:11 ALLERGIES ALLERGIES: Coded Allergies: No Known Drug Allergies (Unverified , 12/27/21) ROS Review of System 14 point ROS evaluated with pertinent positives noted per HPI PHYSICAL EXAM General: Alert, Oriented X3, Cooperative, No acute distress HEENT: Atraumatic, Mucous membr. moist/pink Lungs: Clear to auscultation, Normal air movement Heart: Regular rate (SR), Normal S1, Normal S2, No murmurs Abdomen: Soft, No tenderness Extremities: No cyanosis, No edema Skin: No breakdown, No significant lesion Neuro: Normal speech, Sensation intact Psych/Mental Status: Mental status NL, Mood NL MUSCULOSKELETAL: Osteoarthritic changes both hands VITALS/I&O VITALS/I&O: Vital Signs Date Time Temp Pulse Resp B/P (MAP) Pulse Ox O2 Delivery O2 Flow Rate FiO2 12/27/21 13:11 59 168/85 12/27/21 13:01 Room Air 12/27/21 11:00 97.8 18 98 97.8 I & O 12/26/21 12/26/21 12/27/21 15:00 23:00 07:00 Intake Total 2000 ml Balance 2000 ml LABS Lab: Laboratory Tests Test 12/27/21 03:06 12/27/21 05:05 White Blood Count 11.8 x10^3/uL (4.0-11.0) H Red Blood Count 4.58 x10^6/uL (4.30-5.70) Hemoglobin 13.9 g/dL (13.0-17.5) Hematocrit 40.8 % (39.0-53.0) Mean Corpuscular Volume 89 fL (79-100) Mean Corpuscular Hemoglobin 30 pg (25-35) Mean Corpuscular Hemoglobin Concent 34 g/dL (31-37) Red Cell Distribution Width 13.5 % (11.5-14.5) Platelet Count 226 x10^3/uL (140-400) Neutrophils (%) (Auto) 75 % (31-73) H Lymphocytes (%) (Auto) 18 % (24-48) L Monocytes (%) (Auto) 6 % (0-9) Eosinophils (%) (Auto) 1 % (0-3) Basophils (%) (Auto) 0 % (0-3) Neutrophils # (Auto) 8.8 x10^3/uL (1.8-7.7) H Lymphocytes # (Auto) 2.1 x10^3/uL (1.0-4.8) Monocytes # (Auto) 0.7 x10^3/uL (0.0-1.1) Eosinophils # (Auto) 0.1 x10^3/uL (0.0-0.7) Basophils # (Auto) 0.0 x10^3/uL (0.0-0.2) Prothrombin Time 12.2 SEC (11.7-14.0) Prothrombin Time INR 0.9 (0.8-1.1) Activated Partial Thromboplast Time 28 SEC (24-38) Sodium Level 139 mmol/L (136-145) Potassium Level 4.0 mmol/L (3.5-5.1) Chloride Level 101 mmol/L (98-107) Carbon Dioxide Level 24 mmol/L (21-32) Anion Gap 14 (6-14) Blood Urea Nitrogen 19 mg/dL (8-26) Creatinine 1.0 mg/dL (0.7-1.3) Estimated GFR (Cockcroft-Gault) 76.2 BUN/Creatinine Ratio 19 (6-20) Glucose Level 181 mg/dL (70-99) H Calcium Level 9.7 mg/dL (8.5-10.1) Total Bilirubin 0.4 mg/dL (0.2-1.0) Aspartate Amino Transferase (AST) 22 U/L (15-37) Alanine Aminotransferase (ALT) 26 U/L (16-63) Alkaline Phosphatase 90 U/L (46-116) Troponin I High Sensitivity 7 ng/L (4-75) Total Protein 8.0 g/dL (6.4-8.2) Albumin 4.0 g/dL (3.4-5.0) Albumin/Globulin Ratio 1.0 (1.0-1.7) Lipase 54 U/L (73-393) L Lactic Acid Level 0.8 mmol/L (0.4-2.0) Laboratory Tests 12/27/21 03:06 Laboratory Tests 12/27/21 03:06 ECHOCARDIOGRAM ECHOCARDIOGRAM <Conclusion> The left ventricular systolic function is normal. The Ejection Fraction is 55-60%. There is normal LV segmental wall motion. Trace mitral regurgitation. There is no evidence of significant pericardial effusion. DATE: 01/14/21 [id number] HEART CATH HEART CATH FINDINGS 1. Hemodynamics: Left ventricular end-diastolic pressure of 26 mmHg. No pullback gradient across the aortic valve. 2. Left ventriculography: Normal left ventricle systolic function with ejection fraction estimated at 60%. No significant mitral regurgitation seen. 3. Coronary angiography: a. The left main coronary artery arose from the left sinus of Valsalva, gave rise to the left anterior descending and left circumflex arteries and did not show any significant stenosis. b. The left anterior descending artery showed 40% stenosis in the midsegment. c. The left circumflex artery did not show any significant stenosis. d. The right coronary artery was a large and dominant vessel arising from the right sinus of Valsalva that showed luminal irregularities without any significant stenosis. Conclusion 1. Nonobstructive coronary disease, 40% stenosis involving left anterior descending artery. 2. Normal left ventricle systolic function with ejection fraction estimated at 60%. Recommendations Medical Therapy DATE: 01/14/21 [id number] ASSESSMENT/PLAN ASSESSMENT/PLAN 1. Acute Cholecystitis: surgery in AM 2. CAD; Clinically stable. Recent workup as noted above. EKG NSR no changes. 3. HTN: mildly labile Recommendations 1. Continue lisinopril for BP control otherwise hydralazine IV PRN 2. Restart ASA and statin post op when able to take PO 3. Cardiac risk index reveals low risk for perioperative CV events for noncardiac surgery OVIDIO MOURA MD 12/28/21 0857: CARDIAC CONSULT ASSESSMENT/PLAN ASSESSMENT/PLAN Patient seen and examined 12/27/2021. Agree with BATTER MIXER's assessment and plan. CAD status clinically stable. Patient is cleared for surgery from cardiac standpoint Thank you for your consultation CORNELIO MITCHELL APRN Dec 27, 2021 13:17 OVIDIO MOURA MD Dec 28, 2021 08:57
[2021-12-27] MEDS: HEPARIN for SUB-Q USE 5,000 UNIT/ML VIAL. SQ SCH ×2 (14:07→21:22)
[2021-12-27 15:00] VITALS: BP 141/77
[2021-12-27 19:00] VITALS: BP 155/76
[2021-12-27 23:00] VITALS: BP 140/78
[2021-12-27 23:52] LABS: BACTERIA,URINE 0 /HPF (0-FEW); RBC,URINE 0 /HPF (0-2); WBC,URINE OCC /HPF (0-4)
[2021-12-28] VITALS (13 sets, daily range): BP systolic 108–161; BP diastolic 61–78
[2021-12-28] MEDS: MORPHINE SULFATE 2 MG/ML INJ. IVP PRN ×2 (00:03→02:56)
[2021-12-28 04:15] LABS: HEMOGLOBIN A1C 6.3 % (4.8-5.6)
[2021-12-28] MEDS: HEPARIN for SUB-Q USE 5,000 UNIT/ML VIAL. SQ SCH ×3 (05:32→20:42)
[2021-12-28] MEDS: IV DEXTROSE 5% - 0.9 % NACL 1,000 ML IV SCH ×3 (05:36→18:04)
[2021-12-28] MEDS: PIPERACILLIN/TAZOBACTAM 3.375 GM in IV NORMAL SALINE 50ML 50 ML IV SCH ×3 (05:36→18:05)
[2021-12-28] MEDS ORDERED: HYDROmorphone 2 MG/ML INJ. IVP PRN (06:00)
[2021-12-28] MEDS ORDERED: PROCHLORPERAZINE 10 MG/2 ML VIAL. IVP PRN (06:00)
[2021-12-28] MEDS ORDERED: fentaNYL PF VIAL 100 MCG/2 ML VIAL IVP PRN ×2 (06:00)
[2021-12-28] MEDS ORDERED: IV RINGERS,LACTATED 1000ML 1,000 ML IV SCH (06:00)
[2021-12-28] MEDS ORDERED: MORPHINE SULFATE 2 MG/ML INJ. IVP PRN (06:00)
[2021-12-28] MEDS ORDERED: MORPHINE SULFATE 4 MG/ML INJ. IV PRN (06:15)
[2021-12-28 06:16] LABS: BASO % 0 % (0-3); EOS % 1 % (0-3); HEMATOCRIT 37.8 % (39.0-53.0); HEMOGLOBIN 12.8 g/dL (13.0-17.5); LYMPH # 1.4 x10^3/uL (1.0-4.8); LYMPH % 19 % (24-48); MEAN CORPUSCULAR HEMOGLOBIN 31 pg (25-35); MEAN CORPUSCULAR HGB CONC 34 g/dL (31-37); MEAN CORPUSCULAR VOLUME 90 fL (79-100); MONO # 0.5 x10^3/uL (0.0-1.1); MONO % 6 % (0-9); NEUT # 5.6 x10^3/uL (1.8-7.7); NEUT % 74 % (31-73); PLATELET COUNT 167 x10^3/uL (140-400); RED BLOOD COUNT 4.19 x10^6/uL (4.30-5.70); RED CELL DISTRIBUTION WIDTH 13.4 % (11.5-14.5); WHITE BLOOD COUNT 7.5 x10^3/uL (4.0-11.0)
[2021-12-28 06:47] LABS: ALBUMIN 3.2 g/dL (3.4-5.0); ALBUMIN/GLOBULIN RATIO 0.9 (1.0-1.7); CALCIUM 8.7 mg/dL (8.5-10.1); GFR 76.2; POTASSIUM 3.6 mmol/L (3.5-5.1); TOTAL BILIRUBIN 0.5 mg/dL (0.2-1.0); TOTAL PROTEIN 6.6 g/dL (6.4-8.2)
[2021-12-28] MEDS: LISINOPRIL 20 MG TABLET PO SCH (08:43)
[2021-12-28] MEDS ORDERED: DEXAMETHASONE SOD PHOS 4 MG/ML VIAL ONE (09:18)
[2021-12-28] MEDS ORDERED: GLYCOPYRROLATE 1 MG/5 ML VIAL. ONE (09:18)
[2021-12-28] MEDS ORDERED: PROPOFOL 10 MG/ML (20ML) VIAL. IV ONE (09:18)
[2021-12-28] MEDS ORDERED: SEVOFLURANE 31 TO 60 MINUTES. IH ONE (09:18)
[2021-12-28] MEDS ORDERED: LIDOCAINE 2% PF 5 ML VIAL. ONE (09:18)
[2021-12-28] MEDS ORDERED: NEOSTIGMINE METHYLSULFATE 5 MG/5 ML SYRINGE. ONE (09:18)
[2021-12-28] MEDS ORDERED: ROCURONIUM 50 MG/5 ML VIAL. ONE ×2 (09:18→11:45)
[2021-12-28] MEDS ORDERED: fentaNYL PF VIAL 100 MCG/2 ML VIAL ONE ×2 (09:18→09:44)
[2021-12-28] MEDS ORDERED: ONDANSETRON PF 4 MG/2 ML VIAL. ONE (09:18)
[2021-12-28] MEDS ORDERED: fentaNYL PF VIAL 100 MCG/2 ML VIAL IVP ONE (10:00)
[2021-12-28] MEDS ORDERED: IOHEXOL 300 MG/ML 50 ML VIAL. ONE (10:43)
[2021-12-28] MEDS ORDERED: BISACODYL 10 MG SUPP.RECT. ONE (10:43)
[2021-12-28] MEDS ORDERED: SURGICEL HEMOSTAT 4X8 EACH. ONE (10:43)
[2021-12-28] MEDS ORDERED: BUPIVACAINE-EPI 0.5% 30 ML VIAL KIT. ONE (10:43)
--- NOTE | 2021-12-28 10:56 | PDOC ---
SURGICAL PROGRESS NOTE DATE: 12/28/21 TIME: 10:54 Subjective Pre-Op Note 61 yo M with cholecystitis. TO OR for laparoscopic versus open cholecystectomy with cholangiogram. R/R/B/A d/w pt and pt's supportive family. Risks, including, but not limited to: bleeding, infection, damage to surrounding structures, risk of anesthesia, risk of open. They appear to understand, their questions are answered and they elect to proceed. Vital Signs Vital Signs Date Time Temp Pulse Resp B/P (MAP) Pulse Ox O2 Delivery O2 Flow Rate FiO2 12/28/21 10:02 15 97 Room Air 12/28/21 09:56 98.5 62 172/83 98.5 I&O Intake and Output0 12/28/21 07:00 Intake Total 240 ml Output Total 2515 ml Balance -2275 ml Intake Oral 240 ml Output Urine Total 2515 ml Labs Laboratory Tests Test 12/27/21 03:06 12/27/21 05:05 12/27/21 13:15 12/27/21 15:00 White Blood Count 11.8 x10^3/uL (4.0-11.0) Red Blood Count 4.58 x10^6/uL (4.30-5.70) Hemoglobin 13.9 g/dL (13.0-17.5) Hematocrit 40.8 % (39.0-53.0) Mean Corpuscular Volume 89 fL (79-100) Mean Corpuscular Hemoglobin 30 pg (25-35) Mean Corpuscular Hemoglobin Concent 34 g/dL (31-37) Red Cell Distribution Width 13.5 % (11.5-14.5) Platelet Count 226 x10^3/uL (140-400) Neutrophils (%) (Auto) 75 % (31-73) Lymphocytes (%) (Auto) 18 % (24-48) Monocytes (%) (Auto) 6 % (0-9) Eosinophils (%) (Auto) 1 % (0-3) Basophils (%) (Auto) 0 % (0-3) Neutrophils # (Auto) 8.8 x10^3/uL (1.8-7.7) Lymphocytes # (Auto) 2.1 x10^3/uL (1.0-4.8) Monocytes # (Auto) 0.7 x10^3/uL (0.0-1.1) Eosinophils # (Auto) 0.1 x10^3/uL (0.0-0.7) Basophils # (Auto) 0.0 x10^3/uL (0.0-0.2) Prothrombin Time 12.2 SEC (11.7-14.0) Prothromb Time International Ratio 0.9 (0.8-1.1) Activated Partial Thromboplast Time 28 SEC (24-38) Sodium Level 139 mmol/L (136-145) Potassium Level 4.0 mmol/L (3.5-5.1) Chloride Level 101 mmol/L (98-107) Carbon Dioxide Level 24 mmol/L (21-32) Anion Gap 14 (6-14) Blood Urea Nitrogen 19 mg/dL (8-26) Creatinine 1.0 mg/dL (0.7-1.3) Estimated GFR (Cockcroft-Gault) 76.2 BUN/Creatinine Ratio 19 (6-20) Glucose Level 181 mg/dL (70-99) Calcium Level 9.7 mg/dL (8.5-10.1) Total Bilirubin 0.4 mg/dL (0.2-1.0) Aspartate Amino Transf (AST/SGOT) 22 U/L (15-37) Alanine Aminotransferase (ALT/SGPT) 26 U/L (16-63) Alkaline Phosphatase 90 U/L (46-116) Troponin I High Sensitivity 7 ng/L (4-75) Total Protein 8.0 g/dL (6.4-8.2) Albumin 4.0 g/dL (3.4-5.0) Albumin/Globulin Ratio 1.0 (1.0-1.7) Lipase 54 U/L (73-393) Lactic Acid Level 0.8 mmol/L (0.4-2.0) Coronavirus (COVID-19)(PCR) Not detected (NOT DETECTD) SARS-CoV-2 Antigen (Rapid) Negative (NEGATIVE) Hemoglobin A1c 6.3 % (4.8-5.6) Test 12/27/21 23:35 12/28/21 05:20 Urine Collection Type Unknown Urine Color (Auto) Light yellow Urine Turbidity Clear Urine pH (Auto) 6.0 (<5.0-8.0) Urine Specific [place] 1.009 (1.000-1.030) Urine Protein (Auto) Negative mg/dL (Negative) Urine Glucose (Auto)(UA) Negative mg/dL (Negative) Urine Ketones (Auto) Negative mg/dL (Negative) Urine Blood (Auto) Negative (Negative) Urine Nitrite Negative (Negative) Urine Bilirubin (Auto) Negative (Negative) Urine Urobilinogen (Auto) Normal mg/dL (Normal) Urine Leukocyte Esterase (Auto) Negative (Negative) Urine RBC 0 /HPF (0-2) Urine WBC Occ /HPF (0-4) Urine Squamous Epithelial Cells Occ /LPF Urine Bacteria 0 /HPF (0-FEW) White Blood Count 7.5 x10^3/uL (4.0-11.0) Red Blood Count 4.19 x10^6/uL (4.30-5.70) Hemoglobin 12.8 g/dL (13.0-17.5) Hematocrit 37.8 % (39.0-53.0) Mean Corpuscular Volume 90 fL (79-100) Mean Corpuscular Hemoglobin 31 pg (25-35) Mean Corpuscular Hemoglobin Concent 34 g/dL (31-37) Red Cell Distribution Width 13.4 % (11.5-14.5) Platelet Count 167 x10^3/uL (140-400) Neutrophils (%) (Auto) 74 % (31-73) Lymphocytes (%) (Auto) 19 % (24-48) Monocytes (%) (Auto) 6 % (0-9) Eosinophils (%) (Auto) 1 % (0-3) Basophils (%) (Auto) 0 % (0-3) Neutrophils # (Auto) 5.6 x10^3/uL (1.8-7.7) Lymphocytes # (Auto) 1.4 x10^3/uL (1.0-4.8) Monocytes # (Auto) 0.5 x10^3/uL (0.0-1.1) Eosinophils # (Auto) 0.0 x10^3/uL (0.0-0.7) Basophils # (Auto) 0.0 x10^3/uL (0.0-0.2) Sodium Level 140 mmol/L (136-145) Potassium Level 3.6 mmol/L (3.5-5.1) Chloride Level 107 mmol/L (98-107) Carbon Dioxide Level 26 mmol/L (21-32) Anion Gap 7 (6-14) Blood Urea Nitrogen 4 mg/dL (8-26) Creatinine 1.0 mg/dL (0.7-1.3) Estimated GFR (Cockcroft-Gault) 76.2 BUN/Creatinine Ratio 4 (6-20) Glucose Level 170 mg/dL (70-99) Calcium Level 8.7 mg/dL (8.5-10.1) Total Bilirubin 0.5 mg/dL (0.2-1.0) Aspartate Amino Transf (AST/SGOT) 66 U/L (15-37) Alanine Aminotransferase (ALT/SGPT) 110 U/L (16-63) Alkaline Phosphatase 68 U/L (46-116) Total Protein 6.6 g/dL (6.4-8.2) Albumin 3.2 g/dL (3.4-5.0) Albumin/Globulin Ratio 0.9 (1.0-1.7) Laboratory Tests Test 12/27/21 13:15 12/27/21 15:00 12/27/21 23:35 12/28/21 05:20 Coronavirus (COVID-19)(PCR) Not detected (NOT DETECTD) SARS-CoV-2 Antigen (Rapid) Negative (NEGATIVE) Hemoglobin A1c 6.3 % (4.8-5.6) Urine Collection Type Unknown Urine Color (Auto) Light yellow Urine Turbidity Clear Urine pH (Auto) 6.0 (<5.0-8.0) Urine Specific [place] 1.009 (1.000-1.030) Urine Protein (Auto) Negative mg/dL (Negative) Urine Glucose (Auto)(UA) Negative mg/dL (Negative) Urine Ketones (Auto) Negative mg/dL (Negative) Urine Blood (Auto) Negative (Negative) Urine Nitrite Negative (Negative) Urine Bilirubin (Auto) Negative (Negative) Urine Urobilinogen (Auto) Normal mg/dL (Normal) Urine Leukocyte Esterase (Auto) Negative (Negative) Urine RBC 0 /HPF (0-2) Urine WBC Occ /HPF (0-4) Urine Squamous Epithelial Cells Occ /LPF Urine Bacteria 0 /HPF (0-FEW) White Blood Count 7.5 x10^3/uL (4.0-11.0) Red Blood Count 4.19 x10^6/uL (4.30-5.70) Hemoglobin 12.8 g/dL (13.0-17.5) Hematocrit 37.8 % (39.0-53.0) Mean Corpuscular Volume 90 fL (79-100) Mean Corpuscular Hemoglobin 31 pg (25-35) Mean Corpuscular Hemoglobin Concent 34 g/dL (31-37) Red Cell Distribution Width 13.4 % (11.5-14.5) Platelet Count 167 x10^3/uL (140-400) Neutrophils (%) (Auto) 74 % (31-73) Lymphocytes (%) (Auto) 19 % (24-48) Monocytes (%) (Auto) 6 % (0-9) Eosinophils (%) (Auto) 1 % (0-3) Basophils (%) (Auto) 0 % (0-3) Neutrophils # (Auto) 5.6 x10^3/uL (1.8-7.7) Lymphocytes # (Auto) 1.4 x10^3/uL (1.0-4.8) Monocytes # (Auto) 0.5 x10^3/uL (0.0-1.1) Eosinophils # (Auto) 0.0 x10^3/uL (0.0-0.7) Basophils # (Auto) 0.0 x10^3/uL (0.0-0.2) Sodium Level 140 mmol/L (136-145) Potassium Level 3.6 mmol/L (3.5-5.1) Chloride Level 107 mmol/L (98-107) Carbon Dioxide Level 26 mmol/L (21-32) Anion Gap 7 (6-14) Blood Urea Nitrogen 4 mg/dL (8-26) Creatinine 1.0 mg/dL (0.7-1.3) Estimated GFR (Cockcroft-Gault) 76.2 BUN/Creatinine Ratio 4 (6-20) Glucose Level 170 mg/dL (70-99) Calcium Level 8.7 mg/dL (8.5-10.1) Total Bilirubin 0.5 mg/dL (0.2-1.0) Aspartate Amino Transf (AST/SGOT) 66 U/L (15-37) Alanine Aminotransferase (ALT/SGPT) 110 U/L (16-63) Alkaline Phosphatase 68 U/L (46-116) Total Protein 6.6 g/dL (6.4-8.2) Albumin 3.2 g/dL (3.4-5.0) Albumin/Globulin Ratio 0.9 (1.0-1.7) Problem List Problems Medical Problems: (1) Acute cholecystitis Status: Acute (2) Acute vomiting Status: Acute (3) Right upper quadrant abdominal pain Status: Acute Justicifation of Admission Dx: Justifications for Admission: Justification of Admission Dx: Yes CHF: Hemodynamic Instability CHASIDY SCHMITT MD Dec 28, 2021 10:56
[2021-12-28] MEDS ORDERED: PHENYLEPHRINE in 0.9% NACL PF 1 MG/10 ML SYRINGE. IV ONE (11:34)
[2021-12-28] MEDS ORDERED: KETAMINE HCL IN NACL, ISO-OSM 50 MG/5 ML SYRINGE ONE (11:41)
[2021-12-28] MEDS: HEPARIN 1,000 UNIT in IV NORMAL SALINE 1,000 ML for SURG PERIOP IRR ONE ×2 (11:43→11:59)
[2021-12-28] MEDS ORDERED: HYDROmorphone 2 MG/ML INJ. ONE (11:49)
[2021-12-28] MEDS ORDERED: NALOXONE 0.4 MG/ML VIAL. IV PRN (12:30)
[2021-12-28] MEDS ORDERED: 0.9 % SODIUM CHLORIDE 10 ML DISP.SYRIN. IV PRN (12:30)
[2021-12-28] MEDS ORDERED: IV NORMAL SALINE 1000ML BAG 1,000 ML IV SCH (12:30)
[2021-12-28] MEDS ORDERED: DEXTROSE 50% 25 GM / 50ML DISP.SYRIN. IV PRN (12:30)
[2021-12-28] MEDS ORDERED: IV DEXTROSE 5% 250 ML BAG. IV PRN (12:30)
[2021-12-28] MEDS: IV RINGERS,LACTATED 1000ML 1,000 ML IV SCH ×3 (12:30→20:43)
[2021-12-28] MEDS ORDERED: ONDANSETRON PF 4 MG/2 ML VIAL. IVP PRN (12:30)
--- NOTE | 2021-12-28 12:31 | PDOC4 ---
OPERATIVE NOTE Date: Date: Dec 28, 2021 Pre-Op Diagnosis: Calculous cholecystitis Post-Op Diagnosis: same Procedure Performed: laparoscopic cholecystectomy with cholangiogram Surgeon: Bart Schmitt Anesthesia Type: GETA plus local Blood Loss: 50 Specimans Obtained: gallbladder Findings: fatty liver, severe chronic cholecystitis with omental adhesions. White bile c/w cystic duct obstruction. Normal cholangiogram. Complications: none Operative Note: After obtaining informed consent, patient was taken to OR, induced under GETA and prepped in the usual fashion. 5 mm ports placed umbilical and RUQ, 12 port placed epigastric, all under laparoscopic guidance. Abdominal cavity was explored and normal except noted as above. Adhesions taken down sharply. Gallbladder taken off fossa using cautery in dome down fashion. Cystic artery ligated with clips. Cholangiogram obtained via cystic duct and was normal. Cystic duct controlled with hemolok and clips. Gallbladder placed in bag, deliv ered and sent to pathology. Copious irrigation. No evidence of bleeding or other pathology noted. Ports removed without bleeding. Fascia repaired with 0 vicryl. Skin repaired with 4 0 monocryl. Dressing placed. Patient tolerated procedure well and sent to PACU in stable condition. All counts correct. Wound class is 3. CHASIDY SCHMITT MD Dec 28, 2021 12:31
[2021-12-28] MEDS ORDERED: SUGAMMADEX SODIUM 200 MG/2 ML VIAL. IVP ONE (12:45)
--- NOTE | 2021-12-28 13:28 | PDOC ---
[facility] PROGRESS NOTE Date of Service DOS: DATE: 12/28/21 TIME: 13:27 Chief Complaint Chief Complaint Acute cholecystitis HTN History of Present Illness History of Present Illness 12/28: Patient seen in PACU, s/p laparoscopic cholecystectomy. He was little groggy, and complains of some gas. Discussed with his general surgeon, will likely keep overnight and anticipate discharge tomorrow. Discussed with his at bedside. Vitals/I&O Vitals/I&O: Vital Signs Date Time Temp Pulse Resp B/P (MAP) Pulse Ox O2 Delivery O2 Flow Rate FiO2 12/28/21 13:10 75 16 146/86 98 Simple Mask 6.0 12/28/21 12:43 97.6 97.6 I & O 12/27/21 12/27/21 12/28/21 15:00 23:00 07:00 Intake Total 240 ml Output Total 1115 ml 1400 ml Balance -1115 ml 240 ml -1400 ml Physical Exam General: Alert, Oriented X3, Cooperative, No acute distress Heart: Regular rate (SR), Normal S1, Normal S2, No murmurs Lungs: Clear Abdomen: Soft, No tenderness Extremities: No cyanosis, No edema Skin: No breakdown, No significant lesion Labs Labs: Laboratory Tests Test 12/27/21 15:00 12/27/21 23:35 12/28/21 05:20 Hemoglobin A1c 6.3 % (4.8-5.6) Urine Collection Type Unknown Urine Color (Auto) Light yellow Urine Turbidity Clear Urine pH (Auto) 6.0 (<5.0-8.0) Urine Specific [place] 1.009 (1.000-1.030) Urine Protein (Auto) Negative mg/dL (Negative) Urine Glucose (Auto)(UA) Negative mg/dL (Negative) Urine Ketones (Auto) Negative mg/dL (Negative) Urine Blood (Auto) Negative (Negative) Urine Nitrite Negative (Negative) Urine Bilirubin (Auto) Negative (Negative) Urine Urobilinogen (Auto) Normal mg/dL (Normal) Urine Leukocyte Esterase (Auto) Negative (Negative) Urine RBC 0 /HPF (0-2) Urine WBC Occ /HPF (0-4) Urine Squamous Epithelial Cells Occ /LPF Urine Bacteria 0 /HPF (0-FEW) White Blood Count 7.5 x10^3/uL (4.0-11.0) Red Blood Count 4.19 x10^6/uL (4.30-5.70) Hemoglobin 12.8 g/dL (13.0-17.5) Hematocrit 37.8 % (39.0-53.0) Mean Corpuscular Volume 90 fL (79-100) Mean Corpuscular Hemoglobin 31 pg (25-35) Mean Corpuscular Hemoglobin Concent 34 g/dL (31-37) Red Cell Distribution Width 13.4 % (11.5-14.5) Platelet Count 167 x10^3/uL (140-400) Neutrophils (%) (Auto) 74 % (31-73) Lymphocytes (%) (Auto) 19 % (24-48) Monocytes (%) (Auto) 6 % (0-9) Eosinophils (%) (Auto) 1 % (0-3) Basophils (%) (Auto) 0 % (0-3) Neutrophils # (Auto) 5.6 x10^3/uL (1.8-7.7) Lymphocytes # (Auto) 1.4 x10^3/uL (1.0-4.8) Monocytes # (Auto) 0.5 x10^3/uL (0.0-1.1) Eosinophils # (Auto) 0.0 x10^3/uL (0.0-0.7) Basophils # (Auto) 0.0 x10^3/uL (0.0-0.2) Sodium Level 140 mmol/L (136-145) Potassium Level 3.6 mmol/L (3.5-5.1) Chloride Level 107 mmol/L (98-107) Carbon Dioxide Level 26 mmol/L (21-32) Anion Gap 7 (6-14) Blood Urea Nitrogen 4 mg/dL (8-26) Creatinine 1.0 mg/dL (0.7-1.3) Estimated GFR (Cockcroft-Gault) 76.2 BUN/Creatinine Ratio 4 (6-20) Glucose Level 170 mg/dL (70-99) Calcium Level 8.7 mg/dL (8.5-10.1) Total Bilirubin 0.5 mg/dL (0.2-1.0) Aspartate Amino Transf (AST/SGOT) 66 U/L (15-37) Alanine Aminotransferase (ALT/SGPT) 110 U/L (16-63) Alkaline Phosphatase 68 U/L (46-116) Total Protein 6.6 g/dL (6.4-8.2) Albumin 3.2 g/dL (3.4-5.0) Albumin/Globulin Ratio 0.9 (1.0-1.7) Assessment and Plan Assessmemt and Plan Problems Medical Problems: (1) Acute cholecystitis Status: Acute (2) Acute vomiting Status: Acute (3) Right upper quadrant abdominal pain Status: Acute Comment Review of Relevant I have reviewed the following items ricardo (where applicable) has been applied. Medications: Current Medications Medications (Trade) Dose Ordered Sig/Jose Route PRN Reason Start Time Stop Time Status Last Admin Dose Admin Heparin Sodium (Porcine) (Heparin Sodium) 5,000 unit Q8HRS SQ 12/27/21 14:00 12/27/21 14:07 Ringer's Solution 1,000 ml @ 30 mls/hr Q24H IV 12/28/21 06:00 12/28/21 17:59 12/28/21 10:00 Heparin Sodium (Porcine) 1000 unit/Sodium Chloride 1,001 ml @ 1,001 mls/hr 1X ONCE IRR 12/28/21 06:00 12/28/21 06:59 DC 12/28/21 11:43 Morphine Sulfate (Morphine Sulfate) 4 mg PRN Q2HR PRN IV SEVERE PAIN 7-10 12/28/21 06:15 12/28/21 06:28 Fentanyl Citrate (Fentanyl 2ml Vial) 100 mcg 1X ONCE IVP 12/28/21 10:00 12/28/21 10:01 DC 12/28/21 10:02 Bupivacaine HCl/ Epinephrine Bitart (Sensorcain-Epi 0.5% Kit) 30 ml STK-MED ONCE .ROUTE 12/28/21 10:43 12/28/21 10:43 DC 12/28/21 11:43 Iohexol (Omnipaque 300 Mg/ml) 50 ml STK-MED ONCE .ROUTE 12/28/21 10:43 12/28/21 10:43 DC 12/28/21 12:12 Bisacodyl (Dulcolax Supp) 10 mg STK-MED ONCE .ROUTE 12/28/21 10:43 12/28/21 10:43 DC 12/28/21 12:27 Justifications for Admission Other Justification ANAIS HAMM MD Dec 28, 2021 13:28
--- NOTE | 2021-12-28 14:39 | NUR ---
Non-administer 1400 dose of Heparin, due to patient coming back from surgery at 1340, per protocol do not start before 4hrs post-op.
--- NOTE | 2021-12-28 16:15 | RAD ---
DG INTRAOPERATIVE CHOLANGIOGRAM 12/28/2021 11:03 AM INDICATION: Cholangiogram COMPARISON: Limited ultrasound abdomen 12/27/2021 TECHNIQUE: Number of images provided: 1 Fluoroscopy time: 15.2 seconds FINDINGS: Fluoroscopy is provided for intraoperative use. Single image with opacification of intrahepatic and e xtra hepatic biliary tree status post cholecystectomy. IMPRESSION: 1. Intraoperative cholangiogram performed status post cholecystectomy. 2. Please refer to the separate operative report for further details. Electronically signed by: Rosa Isela Bridges MD (12/28/2021 4:13 PM) RUFINO
[2021-12-28] MEDS: MORPHINE SULFATE 2 MG/ML INJ. IV PRN ×2 (18:24→22:34)
[2021-12-28] MEDS: HYDROcodone/APAP 5/325MG 1 TAB TABLET PO PRN (20:16)
[2021-12-28] MEDS: DOCUSATE SODIUM 100 MG CAPSULE. PO SCH (20:16)
[2021-12-29] MEDS: PIPERACILLIN/TAZOBACTAM 3.375 GM in IV NORMAL SALINE 50ML 50 ML IV SCH ×3 (00:02→11:53)
[2021-12-29 03:00] VITALS: BP 123/62
[2021-12-29] MEDS: IV DEXTROSE 5% - 0.9 % NACL 1,000 ML IV SCH (05:45)
[2021-12-29] MEDS: HEPARIN for SUB-Q USE 5,000 UNIT/ML VIAL. SQ SCH (05:46)
[2021-12-29 07:00] VITALS: BP 142/76
[2021-12-29] MEDS: HYDROcodone/APAP 5/325MG 1 TAB TABLET PO PRN (08:06)
[2021-12-29] MEDS: DOCUSATE SODIUM 100 MG CAPSULE. PO SCH (08:06)
[2021-12-29] MEDS: LISINOPRIL 20 MG TABLET PO SCH (08:06)
--- NOTE | 2021-12-29 09:36 | PDOC ---
SURGICAL PROGRESS NOTE DATE: 12/29/21 TIME: 09:35 Subjective tolerating diet feeling better Vital Signs Vital Signs Date Time Temp Pulse Resp B/P (MAP) Pulse Ox O2 Delivery O2 Flow Rate FiO2 12/29/21 08:06 18 96 Room Air 12/29/21 08:06 59 142/76 12/29/21 07:00 98.0 98.0 12/28/21 13:10 6.0 I&O Intake and Output 12/29/21 07:00 Intake Total 1750 ml Output Total 2525 ml Balance -775 ml IV Total 1750 ml Output Urine Total 2500 ml Estimated Blood Loss 25 ml General: Alert, Oriented X3, Cooperative Abdomen: Soft, Other (lap dressings intact ) Labs Laboratory Tests Test 12/27/21 13:15 12/27/21 15:00 12/27/21 23:35 12/28/21 05:20 Coronavirus (COVID-19)(PCR) Not detected (NOT DETECTD) SARS-CoV-2 Antigen (Rapid) Negative (NEGATIVE) Hemoglobin A1c 6.3 % (4.8-5.6) Urine Collection Type Unknown Urine Color (Auto) Light yellow Urine Turbidity Clear Urine pH (Auto) 6.0 (<5.0-8.0) Urine Specific [place] 1.009 (1.000-1.030) Urine Protein (Auto) Negative mg/dL (Negative) Urine Glucose (Auto)(UA) Negative mg/dL (Negative) Urine Ketones (Auto) Negative mg/dL (Negative) Urine Blood (Auto) Negative (Negative) Urine Nitrite Negative (Negative) Urine Bilirubin (Auto) Negative (Negative) Urine Urobilinogen (Auto) Normal mg/dL (Normal) Urine Leukocyte Esterase (Auto) Negative (Negative) Urine RBC 0 /HPF (0-2) Urine WBC Occ /HPF (0-4) Urine Squamous Epithelial Cells Occ /LPF Urine Bacteria 0 /HPF (0-FEW) White Blood Count 7.5 x10^3/uL (4.0-11.0) Red Blood Count 4.19 x10^6/uL (4.30-5.70) Hemoglobin 12.8 g/dL (13.0-17.5) Hematocrit 37.8 % (39.0-53.0) Mean Corpuscular Volume 90 fL (79-100) Mean Corpuscular Hemoglobin 31 pg (25-35) Mean Corpuscular Hemoglobin Concent 34 g/dL (31-37) Red Cell Distribution Width 13.4 % (11.5-14.5) Platelet Count 167 x10^3/uL (140-400) Neutrophils (%) (Auto) 74 % (31-73) Lymphocytes (%) (Auto) 19 % (24-48) Monocytes (%) (Auto) 6 % (0-9) Eosinophils (%) (Auto) 1 % (0-3) Basophils (%) (Auto) 0 % (0-3) Neutrophils # (Auto) 5.6 x10^3/uL (1.8-7.7) Lymphocytes # (Auto) 1.4 x10^3/uL (1.0-4.8) Monocytes # (Auto) 0.5 x10^3/uL (0.0-1.1) Eosinophils # (Auto) 0.0 x10^3/uL (0.0-0.7) Basophils # (Auto) 0.0 x10^3/uL (0.0-0.2) Sodium Level 140 mmol/L (136-145) Potassium Level 3.6 mmol/L (3.5-5.1) Chloride Level 107 mmol/L (98-107) Carbon Dioxide Level 26 mmol/L (21-32) Anion Gap 7 (6-14) Blood Urea Nitrogen 4 mg/dL (8-26) Creatinine 1.0 mg/dL (0.7-1.3) Estimated GFR (Cockcroft-Gault) 76.2 BUN/Creatinine Ratio 4 (6-20) Glucose Level 170 mg/dL (70-99) Calcium Level 8.7 mg/dL (8.5-10.1) Total Bilirubin 0.5 mg/dL (0.2-1.0) Aspartate Amino Transf (AST/SGOT) 66 U/L (15-37) Alanine Aminotransferase (ALT/SGPT) 110 U/L (16-63) Alkaline Phosphatase 68 U/L (46-116) Total Protein 6.6 g/dL (6.4-8.2) Albumin 3.2 g/dL (3.4-5.0) Albumin/Globulin Ratio 0.9 (1.0-1.7) Problem List Problems Medical Problems: (1) Acute cholecystitis Status: Acute (2) Acute vomiting Status: Acute (3) Right upper quadrant abdominal pain Status: Acute Assessment/Plan s/p steve can dc from surgical pov Justicifation of Admission Dx: Justifications for Admission: Justification of Admission Dx: Yes CHF: Hemodynamic Instability DEWEY BENAVIDES APRN Dec 29, 2021 09:36
[2021-12-29 11:00] VITALS: BP 119/65
--- NOTE | 2021-12-29 11:42 | PDOC ---
[employer] PROGRESS NOTE Date of Service DOS: DATE: 12/29/21 TIME: 11:41 Chief Complaint Chief Complaint Acute cholecystitis HTN History of Present Illness History of Present Illness 12/28: Patient seen in PACU, s/p laparoscopic cholecystectomy. He was little groggy, and complains of some gas. Discussed with his general surgeon, will likely keep overnight and anticipate discharge tomorrow. Discussed with his at bedside. 12/29: Patient seen and evaluated. Feels much better today than yesterday. Still complains of some bloating but this should subside. Been cleared by general surgery, and patient comfortable discharging home with family. He will follow up in 2 weeks with surgery. Greater than 30 minutes spent managing the discharge of this patient. Vitals/I&O Vitals/I&O: Vital Signs Date Time Temp Pulse Resp B/P (MAP) Pulse Ox O2 Delivery O2 Flow Rate FiO2 12/29/21 11:00 97.9 61 17 119/65 (83) 95 Room Air 97.9 12/28/21 13:10 6.0 I & O 12/28/21 12/28/21 12/29/21 15:00 23:00 07:00 Intake Total 1750 ml Output Total 675 ml 1500 ml 350 ml Balance 1075 ml -1500 ml -350 ml Physical Exam General: Alert, Oriented X3, Cooperative Heart: Regular rate (SR), Normal S1, Normal S2, No murmurs Lungs: Clear Abdomen: Soft, Other (lap dressings intact ) Extremities: No cyanosis, No edema Skin: No breakdown, No significant lesion Assessment and Plan Assessmemt and Plan Problems Medical Problems: (1) Acute cholecystitis Status: Acute (2) Acute vomiting Status: Acute (3) Right upper quadrant abdominal pain Status: Acute Comment Review of Relevant I have reviewed the following items ricardo (where applicable) has been applied. Medications: Current Medications Medications (Trade) Dose Ordered Sig/Jose Route PRN Reason Start Time Stop Time Status Last Admin Dose Admin Ringer's Solution 1,000 ml @ 100 mls/hr Q10H IV 12/28/21 12:30 12/28/21 20:17 Acetaminophen/ Hydrocodone Bitart (Lortab 5/325) 1 tab PRN Q4HRS PRN PO MILD PAIN 1-3 12/28/21 12:30 12/29/21 08:06 Morphine Sulfate (Morphine Sulfate) 1 mg PRN Q1HR PRN IV PAIN 12/28/21 12:30 12/28/21 22:34 Docusate Sodium (Colace) 100 mg BID PO 12/28/21 21:00 12/29/21 08:06 Justifications for Admission Other Justification ANAIS HAMM MD Dec 29, 2021 11:42
--- NOTE | 2021-12-29 11:44 | PDOC3 ---
Discharge Summary Visit Information Date of Admission: Dec 27, 2021 Date of Discharge: Dec 29, 2021 Final Diagnosis Problems Medical Problems: (1) Acute cholecystitis Status: Acute (2) Acute vomiting Status: Acute (3) Right upper quadrant abdominal pain Status: Acute Brief Hospital Course Allergies Allergies Coded Allergies Type Severity Reaction Last Updated Verified No Known Drug Allergies 12/27/21 No Vital Signs Vital Signs Date Time Temp Pulse Resp B/P (MAP) Pulse Ox O2 Delivery O2 Flow Rate FiO2 12/29/21 11:00 97.9 61 17 119/65 (83) 95 Room Air 97.9 12/28/21 13:10 6.0 Lab Results Laboratory Tests Test 12/27/21 13:15 12/27/21 15:00 12/27/21 23:35 12/28/21 05:20 Coronavirus (COVID-19)(PCR) Not detected (NOT DETECTD) SARS-CoV-2 Antigen (Rapid) Negative (NEGATIVE) Hemoglobin A1c 6.3 % (4.8-5.6) Urine Collection Type Unknown Urine Color (Auto) Light yellow Urine Turbidity Clear Urine pH (Auto) 6.0 (<5.0-8.0) Urine Specific [place] 1.009 (1.000-1.030) Urine Protein (Auto) Negative mg/dL (Negative) Urine Glucose (Auto)(UA) Negative mg/dL (Negative) Urine Ketones (Auto) Negative mg/dL (Negative) Urine Blood (Auto) Negative (Negative) Urine Nitrite Negative (Negative) Urine Bilirubin (Auto) Negative (Negative) Urine Urobilinogen (Auto) Normal mg/dL (Normal) Urine Leukocyte Esterase (Auto) Negative (Negative) Urine RBC 0 /HPF (0-2) Urine WBC Occ /HPF (0-4) Urine Squamous Epithelial Cells Occ /LPF Urine Bacteria 0 /HPF (0-FEW) White Blood Count 7.5 x10^3/uL (4.0-11.0) Red Blood Count 4.19 x10^6/uL (4.30-5.70) Hemoglobin 12.8 g/dL (13.0-17.5) Hematocrit 37.8 % (39.0-53.0) Mean Corpuscular Volume 90 fL (79-100) Mean Corpuscular Hemoglobin 31 pg (25-35) Mean Corpuscular Hemoglobin Concent 34 g/dL (31-37) Red Cell Distribution Width 13.4 % (11.5-14.5) Platelet Count 167 x10^3/uL (140-400) Neutrophils (%) (Auto) 74 % (31-73) Lymphocytes (%) (Auto) 19 % (24-48) Monocytes (%) (Auto) 6 % (0-9) Eosinophils (%) (Auto) 1 % (0-3) Basophils (%) (Auto) 0 % (0-3) Neutrophils # (Auto) 5.6 x10^3/uL (1.8-7.7) Lymphocytes # (Auto) 1.4 x10^3/uL (1.0-4.8) Monocytes # (Auto) 0.5 x10^3/uL (0.0-1.1) Eosinophils # (Auto) 0.0 x10^3/uL (0.0-0.7) Basophils # (Auto) 0.0 x10^3/uL (0.0-0.2) Sodium Level 140 mmol/L (136-145) Potassium Level 3.6 mmol/L (3.5-5.1) Chloride Level 107 mmol/L (98-107) Carbon Dioxide Level 26 mmol/L (21-32) Anion Gap 7 (6-14) Blood Urea Nitrogen 4 mg/dL (8-26) Creatinine 1.0 mg/dL (0.7-1.3) Estimated GFR (Cockcroft-Gault) 76.2 BUN/Creatinine Ratio 4 (6-20) Glucose Level 170 mg/dL (70-99) Calcium Level 8.7 mg/dL (8.5-10.1) Total Bilirubin 0.5 mg/dL (0.2-1.0) Aspartate Amino Transf (AST/SGOT) 66 U/L (15-37) Alanine Aminotransferase (ALT/SGPT) 110 U/L (16-63) Alkaline Phosphatase 68 U/L (46-116) Total Protein 6.6 g/dL (6.4-8.2) Albumin 3.2 g/dL (3.4-5.0) Albumin/Globulin Ratio 0.9 (1.0-1.7) Brief Hospital Course Mr. Lazcano is a 61 old male who presented with appendicitis. Consultation placed to general surgery. Consultation also placed to cardiology for surgical clearance. Patient had laparoscopic appendectomy. Follow-up with general surgery in 2 weeks. Discharge Information Condition at Discharge: Improved Follow Up: Weeks Disposition/Orders: D/C to Home Scheduled Lisinopril (Lisinopril) 20 Mg Tablet, 40 MG PO DAILY for HYPERTENSION, (Reported) Entered as Reported by: GONZALO RODNEY on 10/02/1311 Last Action: Continued on 12/27/21 1246 by ANAIS HAMM MD Scheduled PRN Nitroglycerin (Nitrostat) 0.4 Mg Tab.subl, 0.4 MG SL PRN Q5MIN PRN for CHEST PAIN for 30 Days, #9 Ref 5 Prescribed by: MAYNOR JAEGER MD on 01/15/211499 Last Action: Continued on 12/27/21 1246 by ANAIS HAMM MD Miscellaneous Medications Esomeprazole Magnesium (Nexium Packet) 20 Mg Suspdr.pkt, 20 MG PO, (Reported) Entered as Reported by: GONZALO RODNEY on 10/02/1311 Justicifation of Admission Dx: Justifications for Admission: Justification of Admission Dx: Yes CHF: Hemodynamic Instability ANAIS HAMM MD Dec 29, 2021 11:44
[2021-12-29] MEDS ORDERED: HYDR-2761 PO ×2 (11:47→12:53)
--- NOTE | 2021-12-29 13:56 | NUR ---
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 All questions have been answered and understanding verbalized. The following instructions and handouts were given: Home meds as directed. ok to shower, no tub baths watch out for signs and symptoms of wound infection, severe abdominal pain; handout on lap steve care discussed and given to he patient to follow up with Dr. Jacobson in 2 weeks, call for appointment Discontinued lines and drains: IV intact, no complications. Patient discharged to home with self care accompanied by his via wheelchair at 1330.
--- NOTE | 2021-12-30 17:07 | PATHOLOGY ---
[facility] Accession Number: [id number] . 01 Material submitted: . gallbladder - GALLBLADDER WITH CONTENTS . 01 Clinical history: . CHOLECYSTITIS LAPAROSCOPIC CHOLECYSTECTOMY= CHOLANGIOGRAMS . 02 Diagnosis: Gallbladder, laparoscopic cholecystectomy: - Cholelithiasis. - Cholesterolosis. - Marked chronic and focal acute cholecystitis. (JPM:market news reporter; 12/30/2021) R 12/30/2021 1349 Local . 02 Comment: There is no evidence of malignancy. (JPM:susana; 12/30/2021) . 02 Electronically signed: . Alcides Hyman MD, Pathologist NPI- [id number] . 01 Gross description: . Fixative: Formalin Labeled: Gallbladder with contents Specimen received: Intact gallbladder Dimensions: 7.4 x 3.7 x 2.2 cm Serosa: [place] Lymph node: Not identified Mucosa: Velvety, light brown Average wall thickness: 0.2 cm Calculi: Present displaying a bright yellow and nodular appearance Abnormalities: None identified . 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 (CAA; 12/29/2021) QAC/QAC 12/29/2021 0941 Local . 02 Pathologist provided ICD-10: K80.12, K82.4 . 02 CPT . 731491 Specimen Comment: A courtesy copy of this report has been sent to [phone] Specimen Comment: [phone], Specimen Comment: Report sent to , DR TOUSSAINT / DR TAYLOR Specimen Comment: A duplicate report has been generated due to demographic updates. Performed at: [address], [place] [id number] MD Kike Faulkner MD Phone: [phone] Performed at: [address] [id number] MD Alcides Hyman MD Phone: [phone]
== END 2021-12-29 13:30 | disposition home or self-care (01) | DRG 419 ==
LOC: ER 02:47 → 2 NORTH 04:21
PROVIDERS: ADMIT Student in an Organized Health Care Education/Training Program; ATTEND Student in an Organized Health Care Education/Training Program
PROC: BF121ZZ Fluoroscopy of Gallbladder using Low Osmolar Contrast (ICD-10-PCS; 2021-12-28)
PROC: 0FT44ZZ Resection of Gallbladder, Percutaneous Endoscopic Approach (ICD-10-PCS; principal; 2021-12-28 10:45)
DX: K80.13 Calculus of gallbladder with acute and chronic cholecystitis with obstruction (principal); E03.9 Hypothyroidism, unspecified; F17.210 Nicotine dependence, cigarettes, uncomplicated; I11.0 Hypertensive heart disease with heart failure; I25.10 Atherosclerotic heart disease of native coronary artery without angina pectoris; K66.0 Peritoneal adhesions (postprocedural) (postinfection); K76.0 Fatty (change of) liver, not elsewhere classified; K21.9 Gastro-esophageal reflux disease without esophagitis; Z20.822 Contact with and (suspected) exposure to COVID-19
CPT/HCPCS: 36415; 74300; 76705; 80053; 81001; 83036; 83605; 83690; 84484; 85025; 85610; 85730; 87040; 87426; 88304; 93005; 96361; 96374; 96375; A4209; A4213; A4223; A4314; A4930; C1887; J1100; J1170; J1644; J2270; J2370; J2405; J2543; J2704; J2710; J3010; J3490; J7030; J7042; J7060; J7120; J7121; Q9967; U0003; 99285-25; G0378